=== PATIENT | female | born 1995 | race Two or more races ===

== ENCOUNTER 2017-05-01 14:08 | Emergency (ER) | payer BC, MEDICAID ==
[~2017-05-01] VITALS: Ht 160 cm; Wt 78.5 kg
[2017-05-01 15:00] LABS: Basophils # (auto) 0.1 uL; Basophils % (auto) 0.7 % (0.0-2.0); Eosinophils # (auto) 0.1 uL; Eosinophils % (auto) 1.6 % (0.0-7.0); Hematocrit 40.4 % (36.0-46.0); Hemoglobin 13.4 g/dL (12.2-16.2); Lymphocytes # (auto) 1.8 uL; Lymphocytes % (auto) 23.6 % (10.0-50.0); Mean Corpuscular Hemoglobin 28.1 pg (28.0-32.0); Mean Corpuscular Hgb Conc. 33.1 g/dL (32.0-36.0); Mean Corpuscular Volume 84.8 fL (80.0-100.0); Monocytes # (auto) 0.5 uL; Monocytes % (auto) 6.5 % (0.0-12.0); Neutrophils # (auto) 5.1 uL; Neutrophils % (auto) 67.6 % (37.0-80.0); Nucleated Red Blood Cells % 0.2 %; Platelet Count (auto) 246 10^3/uL (140-450); Red Blood Cells 4.77 10^6/uL (4.0-5.20); Red Cell Distribution Width 15.9 % (11.8-14.3); White Blood Cell 7.6 10^3/uL (4.4-10.8)
[2017-05-01 17:13] VITALS: BP 120/76
== END 2017-05-01 17:21 | disposition home or self-care (01) ==
LOC: ER 14:08
DX: O03.9 Complete or unspecified spontaneous abortion without complication (principal); Z3A.01 Less than 8 weeks gestation of pregnancy
CPT/HCPCS: 36415; 76801; 76817; 84702; 85025

== ENCOUNTER 2018-06-13 05:34 | Emergency (ER) | payer BC, MEDICAID ==
[~2018-06-13] VITALS: Ht 157.5 cm; Wt 76.7 kg
[2018-06-13 05:40] VITALS: BP 115/83
== END 2018-06-13 10:43 | disposition left against medical advice (07) ==
LOC: ER 05:34
DX: M54.2 Cervicalgia (principal); M25.512 Pain in left shoulder; M79.644 Pain in right finger(s); Z53.21 Procedure and treatment not carried out due to patient leaving prior to being seen by health care provider
CPT/HCPCS: 72040; 73030; 73140